=== PATIENT | male | born 1985 | race Caucasian/White ===

== ENCOUNTER 2025-06-02 09:21 | Outpatient (CLI) | payer MEDICAID ==
[2025-06-02] MEDS ORDERED: GADOTERATE MEGLUMINE 7.5 MMOL/15 ML VIAL IV ONE (12:34)
--- NOTE | 2025-06-03 09:43 | RADIOLOGY REPORT ---
Exam: MR MRI PELVIS History: CUTANEOUS ABSCESS OF PERINEUM Comparison: None Technique: Multisequence multiplanar MRI images of the pelvis were performed. Images were obtained without and with intravenous contrast. Findings: Bladder: Unremarkable. Visualized bowel: Visualized portion of the bowel is grossly unremarkable without evidence for obstru ction. Pelvic organs: Unremarkable Lymphadenopathy: No evidence for pelvic lymphadenopathy. Vasculature: There is normal enhancement of the pelvic vasculature. Ascites: Absent. Musculoskeletal: The bone marrow signal is preserved. 1.6 x 1.0 cm perianal abscess which appears to extend from the 3 o'clock position inferiorly to the l eft anterior gluteal cleft/base of the perineum. IMPRESSION: 1.6 x 1.0 cm perianal abscess/fistula which appears to extend from the 3 o'clock position inferiorly to the left anterior gluteal cleft/base of the perineum.
== END 2025-06-02 23:59 | disposition home or self-care (01) ==
LOC: MRI 09:21
PROVIDERS: ATTEND Family Medicine
DX: L02.215 Cutaneous abscess of perineum (principal)
CPT/HCPCS: 72197; A9575